=== PATIENT | female | born 1965 | race Caucasian/White ===

== ENCOUNTER → 2018-06-10 | Outpatient (CLI) | payer OTHER ==
[~2018-06-10] MED LIST: BUDESONIDE EC3 MG PO; Bactrim Ds Tab1 EACH PO; CALC.25 PO; CEPH500 PO; CHOL10002; Fludrocortison0.1 MG PO; HYDACE25S PR; IBUP400 PO; IBUP600 PO; LEVSOD50 PO; VICODIN 5-3001 EACH; VITAMIN D35000 UNIT PO; Vitamin A8000 UNIT PO; Vitamin D400 UNI1 PO; ZOLP5 PO
[2018-06-12 15:06] LABS: HPV 16 Negative (Negative); HPV 18 Negative (Negative); HPV OTHER HR TYPES Negative (Negative)
== END | disposition home or self-care (01) ==
LOC: LAB 15:53 → LAB SHORT 15:53
PROVIDERS: Obstetrics & Gynecology
DX: Z01.419 Encounter for gynecological examination (general) (routine) without abnormal findings (principal)
CPT/HCPCS: 87624; G0123

== ENCOUNTER → 2020-12-21 | Outpatient (CLI) | payer OTHER | LOC: LAB SHORT 17:27 → LAB EV 17:27 → LAB 17:27 | DX: N39.0 Urinary tract infection, site not specified (principal); Z88.0 Allergy status to penicillin; Z88.5 Allergy status to narcotic agent; Z91.018 Allergy to other foods | CPT/HCPCS: 87077; 87086; 87186 ==

== ENCOUNTER 2021-12-25 21:03 | Emergency (ER) | payer OTHER ==
[~2021-12-25] VITALS: Ht 165.1 cm; Wt 55.3 kg
[2021-12-25 21:37] LABS: BASOPHILS ABSOLUTE AUTO 0.05 K/mm3 (0.00-0.23); BASOPHILS PERCENT AUTO 1 % (0-2); EOSINOPHILS PERCENT AUTO 1 % (0-6); Hematocrit 40.8 % (33.0-51.0); Hemoglobin 13.8 g/dL (11.5-16.0); IMMATURE GRAN ABSOLUTE AUTO 0.03 K/mm3 (0.00-0.10); IMMATURE GRAN PERCENT AUTO 0 % (0-1); LYMPHOCYTES ABSOLUTE AUTO 2.54 K/mm3 (0.84-5.20); LYMPHOCYTES PERCENT AUTO 28 % (21-46); MONOCYTES ABSOLUTE AUTO 0.96 K/mm3 (0.16-1.47); MONOCYTES PERCENT AUTO 11 % (4-13); Mean Corpuscular HGB 30.4 pg (26.0-34.0); Mean Corpuscular HGB Conc 33.8 g/dL (31.5-36.5); Mean Corpuscular Volume 90 fL (80-100); NEUTROPHILS ABSOLUTE AUTO 5.38 K/mm3 (1.96-9.15); NEUTROPHILS PERCENT AUTO 59 % (41-73); Platelet Count 224 K/mm3 (150-400); RDW Coefficient Variation 13.1 % (11.7-14.2); RDW Standard Deviation 42.9 fL (35.1-46.3); Red Blood Cell Count 4.54 M/mm3 (3.80-5.20); White Blood Cell Count 9.06 K/mm3 (4.00-11.30)
[2021-12-25 21:54] LABS: Albumin, Blood 3.5 g/dL (3.4-5.0); Albumin/Globulin Ratio 0.8 (0.8-1.8); Bilirubin, Total 0.5 mg/dL (0.1-1.0); Bun/Creatinine Ratio 36.7 (12.0-20.0); Calcium, Blood 8.8 mg/dL (8.5-10.1); Creatinine, Blood 0.74 mg/dL (0.40-1.00); Globulin, Blood 4.2 g/dL (2.2-4.0); Potassium, Blood 3.8 mmol/L (3.5-5.5); Total Protein, Blood 7.7 g/dL (6.4-8.2)
[2021-12-25 22:37] LABS: Magnesium, Blood 1.7 mg/dL (1.6-2.4)
[2021-12-25 23:53] LABS: Influenza A, PCR NEGATIVE (NEGATIVE); Influenza B, PCR NEGATIVE (NEGATIVE); Resp Syncytial Virus, PCR NEGATIVE (NEGATIVE); SARS-Cov-2 (COVID-19) PCR, MMC NEGATIVE (NEGATIVE)
[2021-12-26 01:04] LABS: Source, Urine Clean Catch
[2021-12-26 01:07] LABS: Bilirubin, Urine Neg (Neg); Blood, Urine 1+ (Neg); Glucose Qualitative, Urine Neg (Neg); Ketones, Urine 3+ (Neg); Leukocyte Esterase, Urine Neg (Neg); Nitrite, Urine Neg (Neg); Protein, Urine 2+ (Neg); Specific Gravity, Urine 1.015 (1.003-1.022); Urobilinogen, Urine NORM (Normal)
[2021-12-26 01:20] LABS: Appearance, Urine Clear (Clear); Color, Urine Yellow (P-Yellow)
[2021-12-26 01:28] LABS: White Blood Cells, Urine 0-2 /hpf (0-5)
[2021-12-26 01:29] LABS: Bacteria Rare /hpf; Red Blood Cells, Urine 0-2 /hpf (0-2); Squamous Epithelial Cells Few /hpf (Few)
[2021-12-26] MEDS ORDERED: ONDA4ODT MM (01:37)
== END 2021-12-26 02:00 | disposition home or self-care (01) ==
LOC: ER 21:03
PROVIDERS: Emergency Medicine; Student in an Organized Health Care Education/Training Program
DX: K52.9 Noninfective gastroenteritis and colitis, unspecified (principal); E06.3 Autoimmune thyroiditis; Z20.822 Contact with and (suspected) exposure to COVID-19; Z79.899 Other long term (current) drug therapy; Z88.5 Allergy status to narcotic agent; Z88.0 Allergy status to penicillin; Z91.018 Allergy to other foods
CPT/HCPCS: 0241U; 36415; 74177; 80053; 81001; 83690; 83735; 85025; 96374; 96375; 99284-25; J1885; J2405; J7030; Q9967

== ENCOUNTER 2021-12-31 11:05 | Inpatient (IN) | payer OTHER ==
[~2021-12-31] VITALS: Ht 165.1 cm; Wt 67.5 kg
[2021-12-31 17:55] LABS: BASOPHILS ABSOLUTE AUTO 0.04 K/mm3 (0.00-0.23); BASOPHILS PERCENT AUTO 1 % (0-2); EOSINOPHILS ABSOLUTE AUTO 0.07 K/mm3 (0.00-0.68); EOSINOPHILS PERCENT AUTO 1 % (0-6); Hematocrit 28.9 % (33.0-51.0); Hemoglobin 9.8 g/dL (11.5-16.0); IMMATURE GRAN ABSOLUTE AUTO 0.29 K/mm3 (0.00-0.10); IMMATURE GRAN PERCENT AUTO 4 % (0-1); LYMPHOCYTES ABSOLUTE AUTO 1.88 K/mm3 (0.84-5.20); LYMPHOCYTES PERCENT AUTO 26 % (21-46); MONOCYTES ABSOLUTE AUTO 0.89 K/mm3 (0.16-1.47); MONOCYTES PERCENT AUTO 12 % (4-13); Mean Corpuscular HGB 30.2 pg (26.0-34.0); Mean Corpuscular HGB Conc 33.9 g/dL (31.5-36.5); Mean Corpuscular Volume 89 fL (80-100); NEUTROPHILS ABSOLUTE AUTO 4.19 K/mm3 (1.96-9.15); NEUTROPHILS PERCENT AUTO 57 % (41-73); NRBC ABSOLUTE 0.05 K/mm3 (0.00-0.02); NRBC Auto 0.7 /100 WBC (0.0-0.2); RDW Coefficient Variation 14.5 % (11.7-14.2); RDW Standard Deviation 46.7 fL (35.1-46.3); Red Blood Cell Count 3.25 M/mm3 (3.80-5.20); White Blood Cell Count 7.36 K/mm3 (4.00-11.30)
[2021-12-31 18:02] LABS: Base Excess Venous -12.8 mmol/L; Bicarbonate Venous 15.2 mmol/L (24.0-30.0); PCO2 Venous 32.9 mmHg (38-42); pH Blood Venous 7.25 (7.34-7.37)
[2021-12-31 18:08] LABS: Platelet Count 44 K/mm3 (150-400)
[2021-12-31 18:21] LABS: Magnesium, Blood 2.2 mg/dL (1.6-2.4); Percent Saturation 86.1 % (15.0-50.0)
[2021-12-31 18:28] LABS: Influenza A, PCR NEGATIVE (NEGATIVE); Influenza B, PCR NEGATIVE (NEGATIVE); Resp Syncytial Virus, PCR NEGATIVE (NEGATIVE); SARS-Cov-2 (COVID-19) PCR, MMC NEGATIVE (NEGATIVE)
[2021-12-31 18:55] LABS: Albumin, Blood 2.9 g/dL (3.4-5.0); Albumin/Globulin Ratio 0.8 (0.8-1.8); Beta-hydroxybutyrate 54.1 mg/dL (0.2-2.8); Bilirubin, Direct 0.3 mg/dL (0.0-0.3); Bilirubin, Indirect 0.8 mg/dL (0.1-0.7); Bilirubin, Total 1.1 mg/dL (0.1-1.0); Bun/Creatinine Ratio 19.5 (12.0-20.0); Calcium, Blood 8.5 mg/dL (8.5-10.1); Creatinine, Blood 4.81 mg/dL (0.40-1.00); Globulin, Blood 3.5 g/dL (2.2-4.0); Potassium, Blood 4.9 mmol/L (3.5-5.5); Total Protein, Blood 6.4 g/dL (6.4-8.2)
[2021-12-31 22:35] LABS: Bun/Creatinine Ratio 18.5 (12.0-20.0); Creatinine, Blood 4.64 mg/dL (0.40-1.00); Potassium, Blood 4.7 mmol/L (3.5-5.5)
[2021-12-31 22:59] LABS: Thyroid Stimulating Hormone 1.44 uIU/mL (0.360-4.800)
[2022-01-01 04:15] LABS: BASOPHILS ABSOLUTE AUTO 0.04 K/mm3 (0.00-0.23); BASOPHILS PERCENT AUTO 1 % (0-2); EOSINOPHILS PERCENT AUTO 1 % (0-6); Hemoglobin 8.4 g/dL (11.5-16.0); IMMATURE GRAN ABSOLUTE AUTO 0.29 K/mm3 (0.00-0.10); IMMATURE GRAN PERCENT AUTO 4 % (0-1); LYMPHOCYTES ABSOLUTE AUTO 2.03 K/mm3 (0.84-5.20); LYMPHOCYTES PERCENT AUTO 27 % (21-46); MONOCYTES ABSOLUTE AUTO 1.12 K/mm3 (0.16-1.47); MONOCYTES PERCENT AUTO 15 % (4-13); Mean Corpuscular HGB 29.9 pg (26.0-34.0); Mean Corpuscular HGB Conc 33.6 g/dL (31.5-36.5); Mean Corpuscular Volume 89 fL (80-100); NEUTROPHILS ABSOLUTE AUTO 3.91 K/mm3 (1.96-9.15); NEUTROPHILS PERCENT AUTO 52 % (41-73); NRBC ABSOLUTE 0.05 K/mm3 (0.00-0.02); NRBC Auto 0.7 /100 WBC (0.0-0.2); RDW Coefficient Variation 14.9 % (11.7-14.2); RDW Standard Deviation 48.3 fL (35.1-46.3); Red Blood Cell Count 2.81 M/mm3 (3.80-5.20); White Blood Cell Count 7.49 K/mm3 (4.00-11.30)
[2022-01-01 04:28] LABS: Platelet Count 44 K/mm3 (150-400)
[2022-01-01 04:38] LABS: Bun/Creatinine Ratio 19.4 (12.0-20.0); Calcium, Blood 7.1 mg/dL (8.5-10.1); Creatinine, Blood 4.65 mg/dL (0.40-1.00); Potassium, Blood 4.7 mmol/L (3.5-5.5)
--- NOTE | 2022-01-01 06:11 | NUR ---
IRONWORKER HELPER SHOP SUMMARY PT ARRIVED TO THE UNIT REPORTING SEVERE FLANK PAIN AND NAUSEA. PT WAS GIVEN IV PHENERGAN AND PAIN MEDICATION WHICH SEEMED TO RELIEVE HER SYMPTOMS ENOUGH TO SLEEP FOR A FEW HOURS. THE PT REPORTED FLANK PAIN THROUGH OUT THE SHIFT W MINIMAL RELIEF WHEN MEDICATED PER EMAR. NO EMESIS OR BM THIS SHIFT. PT HAS HAD NO URINE OUTPUT THIS SHIFT AND BLADDER SCAN THIS AM SHOWED <200ML IN HER BLADDER. BP WNL AND STABLE. TELE SHOWING SR IN THE 60'S. PT AFEBRILE. O2 SATS >92% ON RM AIR. CBG'S DROPPING UNTIL 0200 WHERE THEY HAVE REMAINED AT 70 ALL MORNING. HEMATOLOGY AND NEPHROLOGY CONSULTS BOTH CALLED IN. DR. FENG SWITCHING FLUIDS TO NA BICARB IN 0.25NS. WILL REPORT TO ONCOMING RN.
[2022-01-01 10:12] LABS: Bilirubin, Direct 0.2 mg/dL (0.0-0.3); Creatine Kinase MB 1.9 ng/mL (0.0-3.6); Creatine Kinase MB Index 1.2 (0.0-4.0)
--- NOTE | 2022-01-01 13:06 | NUR ---
Patient is lying in bed and moaning. Pt's spouse, Edwar is bedside. Pt's RN Gerald is working diligently to manage pt's pain level and nausea. Edwar talks about the events that led to her hospitalization, the family (one son Ej and one dtr Flor). Pt continues to struggle and is in too much pain to engage in the conversation. I provide a calming presence, therapeutic listening (for Edwar) and prayer. Pt and Edwar voice their appreciation for the visit.
[2022-01-01 13:41] LABS: IMMATURE RETIC FRACTION 32.9 % (2.3-16.0); RETIC HGB EQUIVALENT 34.9 pg (28.20-36.60); RETICULOCYTE COUNT PERCENT 2.49 % (0.50-2.50)
[2022-01-01 14:59] LABS: Albumin, Blood 2.4 g/dL (3.4-5.0); Anion Gap 11 mmol/L (6-16); Blood Urea Nitrogen 85 mg/dL (8-24); Bun/Creatinine Ratio 18.7 (12.0-20.0); CO2, Blood 17 mmol/L (21-32); Calcium, Blood 7.5 mg/dL (8.5-10.1); Chloride, Blood 111 mmol/L (98-108); Creatinine, Blood 4.55 mg/dL (0.40-1.00); Glomerular Filtration Rate 11 (60-); Glucose, Blood 70 mg/dL (70-99); Phosphorus, Blood 4.5 mg/dL (2.5-4.9); Potassium, Blood 4.5 mmol/L (3.5-5.5); Sodium, Blood 139 mmol/L (136-145)
[2022-01-01 15:00] LABS: International Normalized Ratio 1.1; Prothrombin Time Results 11.5 Sec (9.7-11.5)
--- NOTE | 2022-01-01 17:04 | NUR ---
SHIFT SUMMARY PT HAS BEEN SLEEPING OFF AND ON THROUGHOUT THE DAY. WHILE AWAKE, PT STATES 9/10 PAIN TO BILATERAL FLANKS THAT. PAIN MANAGEMENT MEDICATION WILL REDUCE PAIN TO 5-6/10 AND MAKES THE PT DROWSY. PT HAS CONTINUED TO EXPERIENCE NAUSEA, BUT NO EMESIS OR BOWEL MOVEMENT HAS OCCURRED. MILD SWELLING OF THE DIGITS WAS NOTED THIS AFTERNOON, PT IS UNABLE TO REMOVE RINGS. PT STATES THAT SWELLING IS CAUSING MILD DISCOMFORT IN FINGERS THAT RINGS ARE PLACED ON. PERIPHERAL BLOOD FLOW REMAINS INTACT AND THERE IS CAPILLARY REFILL OF <3 SECONDS.
--- NOTE | 2022-01-01 20:18 | NUR ---
CARE ASSUMPTION THIS RN ENTERED THE PT'S ROOM W PT VISUALLY IN DISTRESS. THE PT REPORTED "CRUSHINGH CHEST PAIN", THAT FELT LIKE "SOMEONE IS SITTING ON MY CHEST". EKG DONE SHOWING NSR IN THE 60'S. BP WNL. PROVIDER CONTACTED AND NEW ORDERS FOR TROPONINS, CHEST XRAY, AND NITRO WERE GIVEN.
[2022-01-02 04:21] LABS: BASOPHILS ABSOLUTE AUTO 0.03 K/mm3 (0.00-0.23); BASOPHILS PERCENT AUTO 1 % (0-2); EOSINOPHILS PERCENT AUTO 2 % (0-6); Hemoglobin 7.3 g/dL (11.5-16.0); IMMATURE GRAN ABSOLUTE AUTO 0.17 K/mm3 (0.00-0.10); IMMATURE GRAN PERCENT AUTO 3 % (0-1); LYMPHOCYTES ABSOLUTE AUTO 1.98 K/mm3 (0.84-5.20); LYMPHOCYTES PERCENT AUTO 31 % (21-46); MONOCYTES ABSOLUTE AUTO 0.79 K/mm3 (0.16-1.47); MONOCYTES PERCENT AUTO 12 % (4-13); Mean Corpuscular HGB 29.9 pg (26.0-34.0); Mean Corpuscular HGB Conc 34.8 g/dL (31.5-36.5); Mean Corpuscular Volume 86 fL (80-100); NEUTROPHILS ABSOLUTE AUTO 3.32 K/mm3 (1.96-9.15); NEUTROPHILS PERCENT AUTO 52 % (41-73); NRBC ABSOLUTE 0.07 K/mm3 (0.00-0.02); NRBC Auto 1.1 /100 WBC (0.0-0.2); RDW Standard Deviation 46.5 fL (35.1-46.3); Red Blood Cell Count 2.44 M/mm3 (3.80-5.20); White Blood Cell Count 6.39 K/mm3 (4.00-11.30)
[2022-01-02 04:34] LABS: Platelet Count 46 K/mm3 (150-400)
[2022-01-02 04:43] LABS: Albumin, Blood 2.2 g/dL (3.4-5.0); Albumin/Globulin Ratio 0.8 (0.8-1.8); Bilirubin, Total 1.1 mg/dL (0.1-1.0); C-REACTIVE PROTEIN, EXT RANGE 2.11 mg/dL (0.000-0.300); Calcium, Blood 7.5 mg/dL (8.5-10.1); Creatinine, Blood 4.22 mg/dL (0.40-1.00); Globulin, Blood 2.8 g/dL (2.2-4.0); Magnesium, Blood 1.9 mg/dL (1.6-2.4); Phosphorus, Blood 4.2 mg/dL (2.5-4.9); Potassium, Blood 3.8 mmol/L (3.5-5.5)
--- NOTE | 2022-01-02 05:21 | NUR ---
FOOT DRILL OPERATOR SUMMARY PT IS ALERT AND ORIENTED THIS SHIFT COMMUNICATING APPROPRIATELY W STAFF DESPITE BEING LIMITED DUE TO NAUSEA AND PAIN. PT BEGAN SHIFT REPORTING "CRUSHING CHEST PAIN", (SEE PREVIOUS NOTE). PROVIDER CONTACTED AND ORDERS GIVEN. TROPONIN WAS NEGATIVE, EKG SHOWED NO ABNORMALITIES, AND PT DID NOT RESPOND TO NITRO. THE PT WAS GIVEN PHENERGAN WHICH SEEMED TO EASE HER SYMPTOMS AND SHE WAS ABLE TO SLEEP. NO BOWEL MOVEMENT THIS SHIFT. PT VOIDED ONCE THIS SHIFT PRODUCING 400ML OF DARK ELISA URINE. BP WNL AND STABLE. TELE SHOWING SR IN THE 60'S. PT HAD CHEST XRAY THIS SHIFT DUE TO CHEST PAIN. PT HAD NAUSEA THIS SHIFT W ATTEMPTS TO VOMIT BUT WAS UNABLE TO PRODUCE ANY EMESIS. BLOOD GLUCOSE STABLE >100 THIS SHIFT. D5W W BICARB RUNNING AT 100ML/HR. WILL REPORT TO ONCOMING RN.
[2022-01-02 08:11] LABS: COMPLEMENT C3, SERUM 109 mg/dL (82-167); IMMUNOGLOBULIN A, QN, SERUM <5 mg/dL (87-352); IMMUNOGLOBULIN G, QN, SERUM 1314 mg/dL (586-1602); IMMUNOGLOBULIN M, QN, SERUM 76 mg/dL (26-217)
[2022-01-02 09:11] LABS: COMPLEMENT C3, SERUM 109 mg/dL (82-167); COMPLEMENT C4, SERUM 15 mg/dL (12-38)
--- NOTE | 2022-01-02 14:01 | NUR ---
Patient continues to struggle with the nausea, pain and exhaustion even as the medical team work tirelessly to manage her symptoms. I talk predominantly with pt's spouse, Ridge. He tells me about the fears and concerns and about their emotional status as the challenges remain in front of them. Pt and ridge are staying grateful and are encouraged by every little step forward. I provide therapeutic listening and prayer. They respond well and show signs of increased hope.
[2022-01-02 17:08] LABS: ANTI-DSDNA ANTIBODIES 2 IU/mL (0-9); RNP ANTIBODIES 0.2 AI (0.0-0.9); SJOGREN'S ANTI-SS-A 0.2 AI (0.0-0.9); SJOGREN'S ANTI-SS-B <0.2 AI (0.0-0.9); SMITH ANTIBODIES <0.2 AI (0.0-0.9)
--- NOTE | 2022-01-02 18:11 | NUR ---
SHIFT SUMMARY PT HAS BEEN RESTING IN BED, SLEEPING OFF AND ON, THROUGHOUT THE DAY. PT CONTINUES TO HAVE 9/10 PAIN TO THE BILATERAL FLANK THAT IS RELIEVED TO 6/10 WITH MEDICATION. PT IS UNABLE TO FIND A COMFORTABLE POSITION EITHER ASSISTED OR UNASSISTED. PT WAS NOT WILLING TO ATTEMPT TO INGEST ANYTHING OTHER THAN WATER DESPITE BEING ENCOURAGED AND EDUCATED. PT WAS ABLE TO TRANSFER TO BEDSIDE COMMODE WITH MINIMAL ASSISTANCE. PT WAS MORE VERBAL COMPARED WITH YESTERDAY AND WOULD ANSWER QUESTIONS AND OFFER INPUT TO THIS RN DURING CONVERSATIONS. PT'S HAS CONTINUED TO BE AT THE BEDSIDE AND HAS ASSISTED WITH CARE. VITAL SIGNS REMAIN STABLE.
[2022-01-02 18:13] LABS: Source, Urine Clean Catch
[2022-01-02 18:18] LABS: Appearance, Urine Hazy (Clear); Bilirubin, Urine Neg (Neg); Blood, Urine 5+ (Neg); Color, Urine Yellow (P-Yellow); Glucose Qualitative, Urine Neg (Neg); Ketones, Urine Neg (Neg); Leukocyte Esterase, Urine 2+ (Neg); Nitrite, Urine Neg (Neg); Protein, Urine 4+ (Neg); Urobilinogen, Urine NORM (Normal)
[2022-01-02 19:00] LABS: Hyaline Casts 0-2 /lpf (0-2); White Blood Cells, Urine 25-50 /hpf (0-5)
[2022-01-02 19:01] LABS: Bacteria Many /hpf; Squamous Epithelial Cells Many /hpf (Few); Transitional Epithelial Cells Few /hpf (0-Rare)
[2022-01-03 04:01] LABS: IMMATURE RETIC FRACTION 31.8 % (2.3-16.0); RETIC HGB EQUIVALENT 34.9 pg (28.20-36.60); RETICULOCYTE ABSOLUTE 0.0624 M/mm3 (0.0200-0.1100); RETICULOCYTE COUNT PERCENT 2.61 % (0.50-2.50)
--- NOTE | 2022-01-03 05:40 | NUR ---
BALLASTER SUMMARY THE PT IS ALERT AND ORIENTED COMMUNICATING APPROPRIATELY W STAFF. THE PT APPEARS TO BE DOING MUCH BETTER THEN SHE HAS BEEN THE PREVIOUS NIGHT. THE PT HAS DENIED ANY NAUSEA THIS SHIFT BUT STILL REPORTS SEVERE ABDOMINAL PAIN REQUIRING IV PAIN MEDICATION THROUGH OUT THE SHIFT.
[2022-01-03 06:23] LABS: BASOPHILS ABSOLUTE AUTO 0.01 K/mm3 (0.00-0.23); BASOPHILS PERCENT AUTO 0 % (0-2); EOSINOPHILS ABSOLUTE AUTO 0.09 K/mm3 (0.00-0.68); EOSINOPHILS PERCENT AUTO 1 % (0-6); Hematocrit 21.4 % (33.0-51.0); Hemoglobin 7.4 g/dL (11.5-16.0); IMMATURE GRAN ABSOLUTE AUTO 0.15 K/mm3 (0.00-0.10); IMMATURE GRAN PERCENT AUTO 2 % (0-1); LYMPHOCYTES ABSOLUTE AUTO 1.64 K/mm3 (0.84-5.20); LYMPHOCYTES PERCENT AUTO 25 % (21-46); MONOCYTES ABSOLUTE AUTO 0.76 K/mm3 (0.16-1.47); MONOCYTES PERCENT AUTO 12 % (4-13); Mean Corpuscular HGB 30.2 pg (26.0-34.0); Mean Corpuscular HGB Conc 34.6 g/dL (31.5-36.5); Mean Corpuscular Volume 87 fL (80-100); NEUTROPHILS ABSOLUTE AUTO 3.83 K/mm3 (1.96-9.15); NEUTROPHILS PERCENT AUTO 59 % (41-73); NRBC ABSOLUTE 0.09 K/mm3 (0.00-0.02); NRBC Auto 1.4 /100 WBC (0.0-0.2); RDW Coefficient Variation 15.4 % (11.7-14.2); RDW Standard Deviation 47.6 fL (35.1-46.3); Red Blood Cell Count 2.45 M/mm3 (3.80-5.20); White Blood Cell Count 6.48 K/mm3 (4.00-11.30)
[2022-01-03 06:32] LABS: Platelet Count 41 K/mm3 (150-400)
[2022-01-03 06:36] LABS: Albumin, Blood 2.2 g/dL (3.4-5.0); Albumin/Globulin Ratio 0.7 (0.8-1.8); Bilirubin, Total 1.2 mg/dL (0.1-1.0); Bun/Creatinine Ratio 23.3 (12.0-20.0); Calcium, Blood 7.7 mg/dL (8.5-10.1); Creatinine, Blood 3.65 mg/dL (0.40-1.00); Magnesium, Blood 1.8 mg/dL (1.6-2.4); Phosphorus, Blood 3.9 mg/dL (2.5-4.9); Potassium, Blood 3.7 mmol/L (3.5-5.5); Total Protein, Blood 5.2 g/dL (6.4-8.2)
[2022-01-03 13:10] LABS: A/G RATIO 1.2 (0.7-1.7); ALBUMIN 2.9 g/dL (2.9-4.4); ALPHA-1-GLOBULIN 0.2 g/dL (0.0-0.4); ALPHA-2-GLOBULIN 0.4 g/dL (0.4-1.0); BETA GLOBULIN 0.6 g/dL (0.7-1.3); GAMMA GLOBULIN 1.2 g/dL (0.4-1.8); GLOBULIN, TOTAL 2.4 g/dL (2.2-3.9); M-SPIKE Not Observed g/dL (Not Observed); PROTEIN, TOTAL, SERUM 5.3 g/dL (6.0-8.5)
--- NOTE | 2022-01-03 13:11 | NUR ---
Patietn is more verbal today and shows signs of less discomfort and pain. Pt's spouse Edwar and daughter Flor are bedside and offering support and care. They explain about the events that have happened over the last 24 hrs and the plans moving forward. I listen empathically and provide prayer. Pt is engaged in the prayer and voices appreciation for the the prayer and time. I will continue to remain available to pt and family.
[2022-01-03 14:42] LABS: Mean Corpuscular HGB 30.4 pg (26.0-34.0); Mean Corpuscular Volume 87 fL (80-100); NRBC ABSOLUTE 0.09 K/mm3 (0.00-0.02); NRBC Auto 1.6 /100 WBC (0.0-0.2); RDW Coefficient Variation 15.6 % (11.7-14.2); White Blood Cell Count 5.74 K/mm3 (4.00-11.30)
[2022-01-03 14:58] LABS: Platelet Count 44 K/mm3 (150-400)
--- NOTE | 2022-01-03 17:53 | NUR ---
SHIFT SUMMARY PT HAS BEEN RESTING IN BED THROUGHOUT THE DAY. PT HAS CONTINUED TO HAVE 8/10 BILATERAL FLANK PAIN THAT HAS BEEN MANAGED DOWN TO 5/10 WITH MEDICATION AND REPOSITIONING. PT HAS BEEN UP TO BEDSIDE COMMODE BY A ONE-PERSON ASSIST TO VOID. ABDOMINAL DISTENTION HAS INCREASED MILDLY FROM INITIAL ASSESSMENT, IT IS FIRM AND TENDER TO PALPATION. REPOSITIONING HAS OCCURRED SPONTANEOUSLY AND UNASSISTED. THIS RN HAS ENCOURAGED PO INTAKE BUT THEY HAVE REFUSED ALL OFFERS OTHER THAN WATER AND REQUESTED PEPPERMINT TEA ONCE. TIME BETWEEN REQUESTS FOR PAIN MANAGEMENT HAVE LENGTHENED THROUGHOUT THE DAY. ALL VITAL SIGNS STABLE.
[2022-01-03 18:38] LABS: International Normalized Ratio 1.15
[2022-01-04 03:49] LABS: BASOPHILS ABSOLUTE AUTO 0.01 K/mm3 (0.00-0.23); BASOPHILS PERCENT AUTO 0 % (0-2); EOSINOPHILS PERCENT AUTO 0 % (0-6); Hematocrit 21.1 % (33.0-51.0); Hemoglobin 7.5 g/dL (11.5-16.0); IMMATURE GRAN ABSOLUTE AUTO 0.09 K/mm3 (0.00-0.10); IMMATURE GRAN PERCENT AUTO 2 % (0-1); LYMPHOCYTES ABSOLUTE AUTO 0.67 K/mm3 (0.84-5.20); LYMPHOCYTES PERCENT AUTO 14 % (21-46); MONOCYTES ABSOLUTE AUTO 0.09 K/mm3 (0.16-1.47); MONOCYTES PERCENT AUTO 2 % (4-13); Mean Corpuscular HGB 31.1 pg (26.0-34.0); Mean Corpuscular HGB Conc 35.5 g/dL (31.5-36.5); Mean Corpuscular Volume 88 fL (80-100); NEUTROPHILS ABSOLUTE AUTO 3.83 K/mm3 (1.96-9.15); NEUTROPHILS PERCENT AUTO 82 % (41-73); NRBC ABSOLUTE 0.07 K/mm3 (0.00-0.02); NRBC Auto 1.5 /100 WBC (0.0-0.2); RDW Coefficient Variation 15.3 % (11.7-14.2); RDW Standard Deviation 47.1 fL (35.1-46.3); Red Blood Cell Count 2.41 M/mm3 (3.80-5.20); White Blood Cell Count 4.69 K/mm3 (4.00-11.30)
[2022-01-04 04:15] LABS: Platelet Count 49 K/mm3 (150-400)
[2022-01-04 04:19] LABS: Alanine Aminotransfer (ALT/SGP 19 U/L (12-78); Albumin, Blood 2.3 g/dL (3.4-5.0); Albumin/Globulin Ratio 0.7 (0.8-1.8); Alk Phos 79 U/L (50-136); Anion Gap 7 mmol/L (6-16); Aspartate Aminotrans (AST/SGOT 45 U/L (12-37); Blood Urea Nitrogen 99 mg/dL (8-24); Bun/Creatinine Ratio 28.9 (12.0-20.0); CO2, Blood 27 mmol/L (21-32); Calcium, Blood 8.1 mg/dL (8.5-10.1); Chloride, Blood 102 mmol/L (98-108); Creatinine, Blood 3.43 mg/dL (0.40-1.00); Globulin, Blood 3.2 g/dL (2.2-4.0); Glomerular Filtration Rate 15 (60-); Glucose, Blood 233 mg/dL (70-99); Lactate Dehydrogenase (Ld),Bld 980 U/L (100-240); Potassium, Blood 4.6 mmol/L (3.5-5.5); Sodium, Blood 136 mmol/L (136-145); Total Protein, Blood 5.5 g/dL (6.4-8.2); Triglycerides 129 mg/dL (30-160)
--- NOTE | 2022-01-04 06:22 | NUR ---
PATIENT REPORTS FEELING BETTER THIS MORNING THAN SHE HAS IN DAYS. SHE WAS ABLE TO SLEEP THROUGH MOST OF THE NIGHT, WAKING ONLY WHEN STAFF ENTERED HER ROOM FOR VITAL SIGNS AND OTHER CARE. SHE REPORTED SOME NAUSEA AT THE BEGINNING OF THE SHIFT LAST NIGHT AND WAS GIVEN PHENERGAN PRESCRIBED. SHE REPORTED MINOR PAIN TO ABDOMEN (EPIGASTRIC AND LEFT LOWER QUADRANT) AND BILATERAL FLANKS. GIVEN HER DROWSINESS FOLLOWING THE ADMINISTRATION OF THE PHENERGAN. I HELD OFF ON ADMINISTERING THE PAIN MEDICATION AND PATIENT LATER DENIED NEEDING ANYTHING FOR PAIN INTERVENTION. VITAL SIGNS STABLE, PO INPUT MINIMAL, PPN INFUSING ORDERED.
[2022-01-04 11:14] LABS: Phosphorus, Blood 5.5 mg/dL (2.5-4.9)
[2022-01-04 15:11] LABS: ANTISCLERODERMA-70 ANTIBODIES <0.2 AI (0.0-0.9); SJOGREN'S ANTI-SS-A 0.2 AI (0.0-0.9); SJOGREN'S ANTI-SS-B <0.2 AI (0.0-0.9)
--- NOTE | 2022-01-04 17:06 | NUR ---
SHIFT SUMMARY PT HAD DR. MARTINEZ AND DR. MERCEDES COME IN AND DX THE PT W/ HUS. PT STARTED ON STERIODS ON 01/04 EVENING FOR TREATMENT. PT WOKE UP FEELING BETTER THEN SHE HAS SINCE COMING TO THE HOSPITAL. SHE WAS C/O SOME UPPER ABDOMINAL PAIN 12/19 AND WAS GIVEN DILAUDID WHICH LOWERED THE PAIN. SHE WAS GIVEN A BEDBATH AND SAT UP IN THE CHAIR. THE PT BECAME VERY DROWSY FROM MEDICATION AND WHEN SHE WAS SLEEPING HER SP02 WAS 88-90% SUSTAINING. SHE WAS PLACED ON 1-3 L NC TO KEEP SPO2 >93%. PT STATES THAT SHE HAS SOME SHORTNESS OF BREATH, BUT IT IS NOT NEW. SHE WAS SWITCHED FROM TPN TO CPN AFTER A PICC LINE WAS PLACE IN THE DUSTIN. DURING THE PICC LINE PROCEDURE THE PT WAS BLEEDING AT THE SITE AND COBAN W/ GAUZE WAS PLACED OVER THE TEGADERM CHG. ICU NURSE ASKED US TO REASSESS THE SITE AFTER 2 HOURS AND BLEEDING HAS NOT CONTINUED. THE ICU NURSE STATED THAT THE DRESSING WILL NEED TO BE CHANGE TOMORROW. PT'S HAS BEEN AT BEDSIDE ALL DAY, AND UPDATING HIS FAMILY. WILL CONTINUE TO MONITOR
--- NOTE | 2022-01-05 06:00 | NUR ---
NO ACUTE EVENTS OVERNIGHT LAST NIGHT. BLOOD SUGARS CHANGED FROM AC/HS TO Q6 HOURS DUE TO PATIENT NOT TOLERATING PO AND RECEIVING PPN. EDUCAITON PROVIDED TO PATIENT REGARDING REASON FOR ELEVATED BLOOD SUGARS, NAMELY HIGH DOSE OF STEROIDS. PT REPORTS THAT HER PAIN IS CONSIDERABLY LESS THAN WHEN SHE WAS FIRST ADMITTED. SHE STATED THAT SHE WAS ABLE TO GET SOME REST LAST NIGHT AND THAT THE PHENERGAN HELPED TO QUELL HER NAUSEA.
[2022-01-05 06:03] LABS: Magnesium, Blood 2.4 mg/dL (1.6-2.4); Phosphorus, Blood 3.9 mg/dL (2.5-4.9)
[2022-01-05 09:01] LABS: BASOPHILS ABSOLUTE AUTO 0.01 K/mm3 (0.00-0.23); BASOPHILS PERCENT AUTO 0 % (0-2); EOSINOPHILS PERCENT AUTO 0 % (0-6); Hematocrit 20.8 % (33.0-51.0); Hemoglobin 7.1 g/dL (11.5-16.0); IMMATURE GRAN ABSOLUTE AUTO 0.08 K/mm3 (0.00-0.10); IMMATURE GRAN PERCENT AUTO 1 % (0-1); LYMPHOCYTES ABSOLUTE AUTO 0.82 K/mm3 (0.84-5.20); LYMPHOCYTES PERCENT AUTO 7 % (21-46); MONOCYTES ABSOLUTE AUTO 0.57 K/mm3 (0.16-1.47); MONOCYTES PERCENT AUTO 5 % (4-13); Mean Corpuscular HGB 30.7 pg (26.0-34.0); Mean Corpuscular HGB Conc 34.1 g/dL (31.5-36.5); Mean Corpuscular Volume 90 fL (80-100); NEUTROPHILS ABSOLUTE AUTO 10.28 K/mm3 (1.96-9.15); NEUTROPHILS PERCENT AUTO 87 % (41-73); NRBC ABSOLUTE 0.06 K/mm3 (0.00-0.02); NRBC Auto 0.5 /100 WBC (0.0-0.2); Platelet Count 88 K/mm3 (150-400); RDW Coefficient Variation 16.7 % (11.7-14.2); RDW Standard Deviation 47.5 fL (35.1-46.3); Red Blood Cell Count 2.31 M/mm3 (3.80-5.20); White Blood Cell Count 11.76 K/mm3 (4.00-11.30)
[2022-01-05 09:31] LABS: Albumin, Blood 2.3 g/dL (3.4-5.0); Albumin/Globulin Ratio 0.8 (0.8-1.8); Bilirubin, Total 0.4 mg/dL (0.1-1.0); Bun/Creatinine Ratio 34.7 (12.0-20.0); Calcium, Blood 7.9 mg/dL (8.5-10.1); Creatinine, Blood 3.2 mg/dL (0.40-1.00); Phosphorus, Blood 3.4 mg/dL (2.5-4.9); Potassium, Blood 4.5 mmol/L (3.5-5.5); Total Protein, Blood 5.3 g/dL (6.4-8.2)
--- NOTE | 2022-01-05 17:47 | NUR ---
SHIFT SUMMARY PT WOKE UP THIS MORNING AND GOALS SET OF A BEDBATH, GETTING UP IN THE CHAIR, DOING SOME ARM AND LEG ROM, AND TRYING TO KEEP DOWN SOME INTAKE. ALL GOALS WERE MET THROUGHOUT THE SHIFT, AND THE PT EVEN PASSED SOME GAS FOR THE FIRST TIME IN DAY. PT WAS ABLE TO TOLERATE SWALLOWING OXYCODONE SINCE IT WAS SMALL BUT BEGAN TO GET SICK WHEN TAKING TYLONAL. PT HAS BEEN SIPPING ON FLUIDS IN SCANT AMOUNT THROUGHOUT THE SHIFT. PAIN, NAUSEA, AND SLEEPING MEDICATIONS CHANGED TO BETTER SUIT THE PT. THE DUILADID IS TO STRONG. PT WAS ON 3L NC WHEN ENTERING THE SHIFT AND IS BACK ON ROOM AIR (BASELINE) SINCE THIS AM. EDEMA HAS LESSENED SINCE 60MG LASIX WAS GIVEN. THE PT HAD HER PICC LINE DRESSING CHANGED AT 1700, AND A NEW BAG OF CPN WAS STARTED. VS HAVE REMINED STABLE THROUGHT THE SHIFT, AND THE ONLY COMPLAINT AT THIS TIME IS SOME BACK/ABDOMINAL PAIN WHICH MEDICATIONS AND HEAT THERAPY HAVE HELPED WITH. WILL CONTINUE TO MONITOR.
[2022-01-06 04:58] LABS: BASOPHILS ABSOLUTE AUTO 0.01 K/mm3 (0.00-0.23); BASOPHILS PERCENT AUTO 0 % (0-2); EOSINOPHILS PERCENT AUTO 0 % (0-6); Hematocrit 19.3 % (33.0-51.0); Hemoglobin 6.6 g/dL (11.5-16.0); IMMATURE GRAN ABSOLUTE AUTO 0.16 K/mm3 (0.00-0.10); IMMATURE GRAN PERCENT AUTO 1 % (0-1); LYMPHOCYTES ABSOLUTE AUTO 0.78 K/mm3 (0.84-5.20); LYMPHOCYTES PERCENT AUTO 6 % (21-46); MONOCYTES ABSOLUTE AUTO 0.54 K/mm3 (0.16-1.47); MONOCYTES PERCENT AUTO 5 % (4-13); Mean Corpuscular HGB 31.4 pg (26.0-34.0); Mean Corpuscular HGB Conc 34.2 g/dL (31.5-36.5); Mean Corpuscular Volume 92 fL (80-100); NEUTROPHILS ABSOLUTE AUTO 10.61 K/mm3 (1.96-9.15); NEUTROPHILS PERCENT AUTO 88 % (41-73); NRBC ABSOLUTE 0.06 K/mm3 (0.00-0.02); NRBC Auto 0.5 /100 WBC (0.0-0.2); Platelet Count 106 K/mm3 (150-400); RDW Coefficient Variation 17.8 % (11.7-14.2); RDW Standard Deviation 47.9 fL (35.1-46.3)
[2022-01-06 05:14] LABS: Magnesium, Blood 2.5 mg/dL (1.6-2.4); Phosphorus, Blood 3.1 mg/dL (2.5-4.9); Triglycerides 277 mg/dL (30-160)
[2022-01-06 06:52] LABS: Albumin, Blood 2.5 g/dL (3.4-5.0); Albumin/Globulin Ratio 0.9 (0.8-1.8); Bilirubin, Total 0.5 mg/dL (0.1-1.0); Bun/Creatinine Ratio 42.8 (12.0-20.0); Calcium, Blood 7.7 mg/dL (8.5-10.1); Creatinine, Blood 2.69 mg/dL (0.40-1.00); Globulin, Blood 2.7 g/dL (2.2-4.0); Potassium, Blood 4.6 mmol/L (3.5-5.5); Total Protein, Blood 5.2 g/dL (6.4-8.2)
--- NOTE | 2022-01-06 07:10 | NUR ---
NO ACUTE EVENTS OVERNIGHT LAST NIGHT WITH THE EXCEPTION OF ABNORMAL VALUES WITH MORNING LABS, AMONG THOSE BEING A HEMOGLOBIN OF 6.6. HOSPITALIST Roly SANTANA ADVISED OF LABS AND ORDER RECEIVED TO TRANSFUSE ONE UNIT OF PACKED RED BLOOD CELLS. TYPE AND SCREEN NEEDED. MRS. COLUNGA DID REQUIRE 2 LPM SUPPLEMENTAL OXYGEN VIA NASAL CANNULA OVERNIGHT. PAIN WAS WELL CONTROLLED WITHOUT SCHEDULED TYLENOL, WHICH PATIENT REFUSED DUE TO EPISODE OF VOMITING FOLLOWING ATTEMPT TO TAKE TYLENOL YESTERDAY AFTERNOON. PATIENT REFUSED THE MELATONIN FOR THE SAME REASON, CONCERN FOR VOMITING WITH PILLS.
--- NOTE | 2022-01-06 13:17 | NUR ---
SHIFT SUMMARY PT. WAS ON 3L NC WHEN COMING ON THE SHIFT DUE TO DESATURATING TO 88% IN THE NIGHT, DURING MY MORNING ASSESSMENT I TURNED THE 02 DOWN TO 1LPM AND HER SP02 >90%. AFTER TWO HOURS HER OXYGEN WAS TURNED OFF AND IS SUSTAING ABOUT 95% SP02. HE HAS NOT HAD ANY SOB OR ANGINA TODAY. PT STARTED TO FEEL A LITTLE NAUSEATED AFTER CHEWING GUM FOR A LITTLE AND AFTER TRYING JELO WITH BREAKFAST. SHE WAS ABLE TO TO SIP ON BROTH AND WATER IN SCANT AMOUNTS THROUGHOUT THE DAY. THE PT GOT UP TO THE BSC MULTIPLE TIMES TODAY, AND SAT UP IN THE CHAIR FOR ABOUT 7 HRS. PT WAS STARTING TO HAVE BACK PAIN AND DECIDED TO GET BACK IN BED. SCD'S REAPPLIES. THE DR'S WANTED TO HOLD OFF ON A BLOOD TRANSFUSION, AND REASSES. PT HAS HAD TWO TRANSFUSIONS AT PREVIOUS STAYS AND HAD BAD REACTIONS. A DEEP CROSS AND MATCH WAS ORDERED, AND LAB WILL TAKE IT TOMORROW. STATED NO URGENCY FOR IT AT THIS TIME. PT FEEL'S BETTER THAN SHE HAS, BUT IS FATIGUED RELATED ANEMIA. SHE MCCLENDON SNOT TAKEN ANY PAIN MEDICATIONS TODAY DUE TO TRYING TO STAY AWAY FROM THEM, BUT WAS MEDICATED WITH ZOFRAN ONCE SO FAR TODAY. PT IS CURRENTLY WORKING WITH THE PT AND SHE IS AMBULATING IN THE [place]. VS HAVE BEEN STABLE AND NO CHANGES IN CARE AT THIS TIME. WILL CONTINUE TO MONITOR.
--- NOTE | 2022-01-07 05:52 | NUR ---
SHIFT SUMMARY A/OX4, 1P ASSIST TO BSC. C/O NAUSEA, MEDICATED PER EMAR. PICC TO DUSTIN RUNNING CPN AT 60 ML/HR. TELE SB IN THE 50S. 2L 02 VIA NC TO MAINTAIN SATS GREATER THAN 92% VSS, NO ACUTE CHANGES AT THIS TIME. BED IN LOWEST POSTION WITH CALL LIGHT IN REACH. WILL CONTINUE TO MONITOR AND REPORT TO ONCOMING RN.
[2022-01-07 06:14] LABS: Albumin, Blood 2.4 g/dL (3.4-5.0); Anion Gap 5 mmol/L (6-16); Blood Urea Nitrogen 97 mg/dL (8-24); Bun/Creatinine Ratio 42.9 (12.0-20.0); CO2, Blood 26 mmol/L (21-32); Calcium, Blood 7.9 mg/dL (8.5-10.1); Chloride, Blood 108 mmol/L (98-108); Creatinine, Blood 2.26 mg/dL (0.40-1.00); Glomerular Filtration Rate 25 (60-); Glucose, Blood 222 mg/dL (70-99); Magnesium, Blood 2.7 mg/dL (1.6-2.4); Phosphorus, Blood 2.7 mg/dL (2.5-4.9); Sodium, Blood 139 mmol/L (136-145)
[2022-01-07 06:56] LABS: BASOPHILS ABSOLUTE AUTO 0.01 K/mm3 (0.00-0.23); BASOPHILS PERCENT AUTO 0 % (0-2); EOSINOPHILS PERCENT AUTO 0 % (0-6); Hematocrit 21.1 % (33.0-51.0); IMMATURE GRAN ABSOLUTE AUTO 0.27 K/mm3 (0.00-0.10); IMMATURE GRAN PERCENT AUTO 2 % (0-1); LYMPHOCYTES ABSOLUTE AUTO 1.08 K/mm3 (0.84-5.20); LYMPHOCYTES PERCENT AUTO 8 % (21-46); MONOCYTES ABSOLUTE AUTO 0.85 K/mm3 (0.16-1.47); MONOCYTES PERCENT AUTO 6 % (4-13); Mean Corpuscular HGB 31.5 pg (26.0-34.0); Mean Corpuscular HGB Conc 33.2 g/dL (31.5-36.5); Mean Corpuscular Volume 95 fL (80-100); NEUTROPHILS ABSOLUTE AUTO 11.35 K/mm3 (1.96-9.15); NEUTROPHILS PERCENT AUTO 84 % (41-73); NRBC ABSOLUTE 0.14 K/mm3 (0.00-0.02); Platelet Count 151 K/mm3 (150-400); RDW Standard Deviation 49.3 fL (35.1-46.3); Red Blood Cell Count 2.22 M/mm3 (3.80-5.20); White Blood Cell Count 13.56 K/mm3 (4.00-11.30)
[2022-01-07 11:05] LABS: Campylobacter Sp Not Detected (NOT DETECT); E. Coli O157 Detected (NOT DETECT); Enteroaggregative E. coli-EAEC Not Detected (NOT DETECT); Enteropathogenic E. coli-EPEC Not Detected (NOT DETECT); Enterotoxigenic E. coli-ETEC Not Detected (NOT DETECT); Plesiomonas Shigelloides Not Detected (NOT DETECT); Salmonella Sp Not Detected (NOT DETECT); Shiga Toxin-prod E. coli-STEC Detected (NOT DETECT); Vibrio Cholerae Not Detected (NOT DETECT); Vibrio Sp Not Detected (NOT DETECT); Yersinia Enterocolitica Not Detected (NOT DETECT)
[2022-01-07 11:06] LABS: Adenovirus F 40/41 Not Detected (NOT DETECT); Astrovirus Not Detected (NOT DETECT); Cryptosporidium Not Detected (NOT DETECT); Cyclospora Cayetanensis Not Detected (NOT DETECT); Entamoeba Histolytica Not Detected (NOT DETECT); Giardia Lamblia Not Detected (NOT DETECT); Norovirus GI/GII Not Detected (NOT DETECT); Rotavirus A Not Detected (NOT DETECT); Sapovirus Not Detected (NOT DETECT); Shigella/Enteroin E. coli-EIEC Not Detected (NOT DETECT)
--- NOTE | 2022-01-07 15:11 | NUR ---
Pt is sitting on a chair and alert. Pt's spouse, Edwar, is bedside. They tell me about the ups and downs of the weekend and the recoery that she is finally making. They give much credit and thanks to the hospital staff and are impressed with the care and excellence they brought to helping pt come up out of a scary situation. They also share about the amazing presybeterian and family support they have had through it all. I provide therapeutic listening and prayer. They both respond well and with gratitude. I will continue to remain available.
--- NOTE | 2022-01-07 16:13 | NUR ---
SHIFT SUMMARY PT WOKE UP FEELING BETTER THEN SHE HAS FOR THE LAST FEW DAYS. GOALS OF AMBULATION, INCREASE ORAL INTAKE, NO NEED FOR PAIN MEDICATIONS, AND SHOWERING WERE SET. THE PT WORKED WITH PT, AND THEN AMBULATED AROUND THE UNIT WITH MYSELF. SHE WAS ABLE TO GET UP TO THE BATHROOM AND HAVE THREE DIFFERENT SMALL FORMED BOWEL MOVEMENTS. SHE STATES THAT MENTALLY BEING IN THE BATHROOM HELPS HER PASS A BM VS THE BSC. SHE HAD A SHOWER AND WAS W/O ANY DIZZINESS, ANGINA, OR SOB. THE PT HAS SOME FLANK PAIN, AND THE VICE PRESIDENT OF SOFTWARE DEVELOPMENT STATED THE NEED FOR INCREASING ORAL FLUIDS TO HELP. THE PT HAS MET ALL OF HER GOALS THROUGHTOUT THE SHIFT, AND HAD A FEW DIFFERENT VISITORS. HER PICC LINE DRESSING WAS CHANGED DUE TO SOME DRIED BLOOD, AND A SMALL KINK IN THE CATHETER UNDER THE CHG. THE CATHETER IS SHOWING AT 4CM AND CHARGE NURSE TOOK A LOOK. V/S HAS BEEN STABLE, AND I WILL CONTINUE TO MONITOR SOME MORE DRIED BLOOD, AND A SLIGHT KINK UNDER THE CHG. D
[2022-01-07 17:09] LABS: ADAMTS13 ACTIVITY >100.0 % (>66.8)
[2022-01-08 04:47] LABS: Albumin, Blood 2.4 g/dL (3.4-5.0); Anion Gap 1 mmol/L (6-16); Blood Urea Nitrogen 76 mg/dL (8-24); Bun/Creatinine Ratio 44.7 (12.0-20.0); CO2, Blood 28 mmol/L (21-32); Calcium, Blood 7.9 mg/dL (8.5-10.1); Chloride, Blood 111 mmol/L (98-108); Glomerular Filtration Rate 35 (60-); Glucose, Blood 152 mg/dL (70-99); Phosphorus, Blood 2.2 mg/dL (2.5-4.9); Potassium, Blood 5.3 mmol/L (3.5-5.5); Sodium, Blood 140 mmol/L (136-145)
--- NOTE | 2022-01-08 06:46 | NUR ---
SHIFT SUMMARY PT ALERT AND ORIENTED X 4. HR STABLE. BP STABLE. OXYGEN SATURATION MAINTAINED ABOVE 94% ON 2 L TO RA. NO CP OR PRESSURE. CPN GTT,SEE EMAR. PT SBA TO BATHROOM. PT REPORTS TO NOT BE ABLE TO SLEEP AND THAT MELATONIN DOES NOT WORK. ORDERS FOR ONE TIME DOSE OF AMBIEN. PT SLEPT T/O SHIFT. NO ACUTE CHANGES DURING SHIFT. CALL LIGHT WITHIN REACH. WILL CONT TO MONITOR UNTIL REPORT GIVEN TO DAYSHIFT RN.
[2022-01-08 08:24] LABS: BASOPHILS ABSOLUTE AUTO 0.01 K/mm3 (0.00-0.23); BASOPHILS PERCENT AUTO 0 % (0-2); EOSINOPHILS PERCENT AUTO 0 % (0-6); Hematocrit 23.5 % (33.0-51.0); Hemoglobin 7.6 g/dL (11.5-16.0); IMMATURE GRAN ABSOLUTE AUTO 0.21 K/mm3 (0.00-0.10); IMMATURE GRAN PERCENT AUTO 2 % (0-1); LYMPHOCYTES PERCENT AUTO 9 % (21-46); MONOCYTES PERCENT AUTO 8 % (4-13); Mean Corpuscular HGB 32.1 pg (26.0-34.0); Mean Corpuscular HGB Conc 32.3 g/dL (31.5-36.5); Mean Corpuscular Volume 99 fL (80-100); NEUTROPHILS ABSOLUTE AUTO 9.84 K/mm3 (1.96-9.15); NEUTROPHILS PERCENT AUTO 81 % (41-73); NRBC ABSOLUTE 0.25 K/mm3 (0.00-0.02); NRBC Auto 2.1 /100 WBC (0.0-0.2); Platelet Count 185 K/mm3 (150-400); RDW Coefficient Variation 22.6 % (11.7-14.2); RDW Standard Deviation 51.2 fL (35.1-46.3); Red Blood Cell Count 2.37 M/mm3 (3.80-5.20); White Blood Cell Count 12.16 K/mm3 (4.00-11.30)
--- NOTE | 2022-01-08 10:02 | NUR ---
ASSUMED CARE REPORT FROM SRIDEVI FRAZIER AT 0700. PT UP TO RECLINER, SO AT BEDSIDE. REPORTS POOR SLEEP LAST NOC. ALSO REPORTS DECREASED APPETITE c INCREASED ABD PAIN AND NAUSEA c PO INTAKE. DR MERCEDES AND JUAN AT BEDSIDE. PT AND UPDATED. ENCOURAGED PO INTAKE AND WILL ADVANCE DIET TOLERATED. BROUGHT STRAWBERRY MILKSHAKE THAT PT TOLERATED WELL. CPN GTT CONTINUED VIA PICC. LUNGS CLEAR. VSS. ABD ROUND, SOFT, NON TENDER. BT X 4. WILL CONTINUE TO MONITOR.
[2022-01-08 13:10] LABS: ANTIMYELOPEROXIDASE (MPO) ABS <0.2 units (0.0-0.9); ANTIPROTEINASE 3 (PR-3) ABS 0.2 units (0.0-0.9); ATYPICAL PANCA <1:20 titer (Neg:<1:20); CYTOPLASMIC (C-ANCA) <1:20 titer (Neg:<1:20); PERINUCLEAR (P-ANCA) <1:20 titer (Neg:<1:20)
--- NOTE | 2022-01-08 14:15 | NUR ---
Patient is improving significantly and is asking for sunlight. Pt's RN Tiffany works hard to make this request happen. After meaningful conversation and providing levity, I go and get a wheelchair and pt is wheeled outside by her spouse, Edwar.
--- NOTE | 2022-01-08 17:53 | NUR ---
SHIFT SUMMARY PT STATUS CHANGED TO MED s TELE THIS SHIFT. TOLERATING MEALS WELL. NO N/V OR ABD PAIN. TPN D/C'D. PT AMB IN HOSPITAL c SO. INDEPENDENT IN ROOM. VSS. WILL CONTINUE TO MONITOR UNTIL REPORT TO ONCOMING NURSE.
--- NOTE | 2022-01-08 21:49 | NUR ---
CARE ASSUMPTION: PATIENT A&O X4, DENIES N/V/D OR OTHER PAIN/DISCOMFORT. TOLERATED FOOD DURING THE DAY. VS WNL. EXPRESSES SOME NERVOUSNESS ABOUT DISCHARGE BUT "IS FEELING SO MUCH BETTER." BED LOW WITH CALL LIGHT IN REACH. MEDICATED PER EMAR.
[2022-01-09 04:31] LABS: BASOPHILS PERCENT AUTO 0 % (0-2); EOSINOPHILS PERCENT AUTO 0 % (0-6); Hematocrit 23.3 % (33.0-51.0); Hemoglobin 7.4 g/dL (11.5-16.0); IMMATURE GRAN ABSOLUTE AUTO 0.14 K/mm3 (0.00-0.10); IMMATURE GRAN PERCENT AUTO 1 % (0-1); LYMPHOCYTES ABSOLUTE AUTO 1.06 K/mm3 (0.84-5.20); LYMPHOCYTES PERCENT AUTO 10 % (21-46); MONOCYTES ABSOLUTE AUTO 0.84 K/mm3 (0.16-1.47); MONOCYTES PERCENT AUTO 8 % (4-13); Mean Corpuscular HGB 31.5 pg (26.0-34.0); Mean Corpuscular HGB Conc 31.8 g/dL (31.5-36.5); Mean Corpuscular Volume 99 fL (80-100); Mean Platelet Volume 13.4 fL (9.1-12.4); NEUTROPHILS ABSOLUTE AUTO 8.46 K/mm3 (1.96-9.15); NEUTROPHILS PERCENT AUTO 81 % (41-73); NRBC ABSOLUTE 0.12 K/mm3 (0.00-0.02); NRBC Auto 1.1 /100 WBC (0.0-0.2); Platelet Count 179 K/mm3 (150-400); RDW Coefficient Variation 24.5 % (11.7-14.2); RDW Standard Deviation 51.5 fL (35.1-46.3); Red Blood Cell Count 2.35 M/mm3 (3.80-5.20)
[2022-01-09 04:42] LABS: Albumin, Blood 2.3 g/dL (3.4-5.0); Anion Gap 4 mmol/L (6-16); Blood Urea Nitrogen 58 mg/dL (8-24); Bun/Creatinine Ratio 37.9 (12.0-20.0); CO2, Blood 25 mmol/L (21-32); Calcium, Blood 7.6 mg/dL (8.5-10.1); Chloride, Blood 112 mmol/L (98-108); Creatinine, Blood 1.53 mg/dL (0.40-1.00); Glomerular Filtration Rate 40 (60-); Glucose, Blood 86 mg/dL (70-99); Phosphorus, Blood 3.2 mg/dL (2.5-4.9); Potassium, Blood 5.5 mmol/L (3.5-5.5); Sodium, Blood 141 mmol/L (136-145)
--- NOTE | 2022-01-09 06:34 | NUR ---
SHIFT SUMMARY: PATIENT DENIES N/V/D, SOB, OR OTHER DISCOMFORT. MEDICATED PER EMAR. NO ADVERSE EVENTS THIS SHIFT. BED LOW WITH CALL LIGHT IN REACH. WILL CONTINUE TO MONITOR AND REPORT TO ONCOMING RN.
[2022-01-09] MEDS ORDERED: MELA3 PO (10:42)
[2022-01-09] MEDS ORDERED: PRED20 PO (10:47)
[2022-01-09] MEDS ORDERED: PRED5 PO (10:49)
[2022-01-09] MEDS ORDERED: LOKELMA PO (10:53)
== END 2022-01-09 11:31 | disposition home or self-care (01) | DRG 682 ==
LOC: ER 11:05 → PCU 21:22
PROVIDERS: Family Medicine; Hospitalist; Internal Medicine Gastroenterology; Internal Medicine Hematology & Oncology; Internal Medicine Nephrology; Student in an Organized Health Care Education/Training Program; ADMIT Family Medicine
PROC: 30233N1 Transfusion of Nonautologous Red Blood Cells into Peripheral Vein, Percutaneous Approach (ICD-10-PCS; principal; 2022-01-06)
DX: N17.9 Acute kidney failure, unspecified (principal); D59.3 Hemolytic-uremic syndrome; K51.00 Ulcerative (chronic) pancolitis without complications; K92.1 Melena; E87.1 Hypo-osmolality and hyponatremia; D80.2 Selective deficiency of immunoglobulin A [IgA]; E87.2 Acidosis; N39.0 Urinary tract infection, site not specified; B33.4 Hantavirus (cardio)-pulmonary syndrome [HPS] [HCPS]; K56.7 Ileus, unspecified; D69.6 Thrombocytopenia, unspecified; R07.9 Chest pain, unspecified; N14.1 Nephropathy induced by other drugs, medicaments and biological substances; T50.8X5A Adverse effect of diagnostic agents, initial encounter; Z20.822 Contact with and (suspected) exposure to COVID-19; F41.9 Anxiety disorder, unspecified; Z96.651 Presence of right artificial knee joint; D50.9 Iron deficiency anemia, unspecified; K90.0 Celiac disease; E03.9 Hypothyroidism, unspecified; B96.23 Unspecified Shiga toxin-producing Escherichia coli [E. coli] [STEC] as the cause of diseases classified elsewhere; E06.3 Autoimmune thyroiditis; E86.0 Dehydration; E80.6 Other disorders of bilirubin metabolism; E86.9 Volume depletion, unspecified; E83.51 Hypocalcemia; I95.1 Orthostatic hypotension; K64.4 Residual hemorrhoidal skin tags; R73.9 Hyperglycemia, unspecified; R74.01 Elevation of levels of liver transaminase levels; Z98.890 Other specified postprocedural states; Z87.19 Personal history of other diseases of the digestive system; Z88.0 Allergy status to penicillin; Z88.5 Allergy status to narcotic agent; Z91.018 Allergy to other foods; Z79.899 Other long term (current) drug therapy; Z90.49 Acquired absence of other specified parts of digestive tract
CPT/HCPCS: 0241U; 36415; 36569; 71045; 74018; 76770; 80048; 80053; 80069; 81001; 82010; 82247; 82248; 82390; 82436; 82525; 82550; 82553; 82570; 82595; 82607; 82668; 82728; 82746; 82784; 82803; 82947; 83010; 83516; 83520; 83540; 83550; 83605; 83615; 83735; 83880; 84100; 84156; 84165; 84300; 84443; 84478; 84484; 85025; 85027; 85045; 85384; 85397; 85610; 85651; 85730; 86037; 86140; 86157; 86160; 86225; 86235; 86430; 86850; 86880; 86900; 86901; 86922; 87507; 88184; 88185; 88187; 93005; 93010; 93306; 96361; 96374; 96375; 97110; 97116; 97162; 99285-25; A9270; C1751; J1170; J1940; J2405; J2550; J2765; J2916; J2930; J3010; J3411; J3475; J3480; J7030; J7042; J7070; J7131; J7512; P9047; Q5106

== ENCOUNTER → 2021-12-31 | Outpatient (CLI) | payer OTHER ==
[~2021-12-31] MED LIST changes: +ONDA4ODT MM
[2021-12-31 10:16] LABS: Albumin, Blood 2.9 g/dL (3.4-5.0); Albumin/Globulin Ratio 0.8 (0.8-1.8); Bilirubin, Total 1.3 mg/dL (0.1-1.0); Bun/Creatinine Ratio 18.6 (12.0-20.0); Calcium, Blood 8.4 mg/dL (8.5-10.1); Creatinine, Blood 4.89 mg/dL (0.40-1.00); Globulin, Blood 3.7 g/dL (2.2-4.0); Potassium, Blood 4.8 mmol/L (3.5-5.5); Total Protein, Blood 6.6 g/dL (6.4-8.2)
[2021-12-31 10:24] LABS: BASOPHILS ABSOLUTE AUTO 0.04 K/mm3 (0.00-0.23); BASOPHILS PERCENT AUTO 1 % (0-2); EOSINOPHILS PERCENT AUTO 1 % (0-6); Hematocrit 27.1 % (33.0-51.0); Hemoglobin 9.4 g/dL (11.5-16.0); IMMATURE GRAN ABSOLUTE AUTO 0.26 K/mm3 (0.00-0.10); IMMATURE GRAN PERCENT AUTO 4 % (0-1); LYMPHOCYTES ABSOLUTE AUTO 2.16 K/mm3 (0.84-5.20); LYMPHOCYTES PERCENT AUTO 30 % (21-46); MONOCYTES ABSOLUTE AUTO 0.94 K/mm3 (0.16-1.47); MONOCYTES PERCENT AUTO 13 % (4-13); Mean Corpuscular HGB 30.5 pg (26.0-34.0); Mean Corpuscular HGB Conc 34.7 g/dL (31.5-36.5); Mean Corpuscular Volume 88 fL (80-100); NEUTROPHILS ABSOLUTE AUTO 3.72 K/mm3 (1.96-9.15); NEUTROPHILS PERCENT AUTO 52 % (41-73); NRBC ABSOLUTE 0.03 K/mm3 (0.00-0.02); NRBC Auto 0.4 /100 WBC (0.0-0.2); RDW Coefficient Variation 14.4 % (11.7-14.2); Red Blood Cell Count 3.08 M/mm3 (3.80-5.20); White Blood Cell Count 7.22 K/mm3 (4.00-11.30)
[2021-12-31 10:25] LABS: Platelet Count 54 K/mm3 (150-400)
== END | disposition home or self-care (01) ==
LOC: LAB SHORT 09:59 → LAB 09:59
PROVIDERS: Physician Assistant
DX: K52.9 Noninfective gastroenteritis and colitis, unspecified (principal)
CPT/HCPCS: 80053; 85025

== ENCOUNTER → 2022-04-10 | Outpatient (CLI) | payer OTHER ==
[~2022-04-10] MED LIST changes: +LOKELMA PO; +MELA3 PO; +PRED20 PO; +PRED5 PO
[2022-04-10 10:18] LABS: Source, Urine Clean Catch
[2022-04-10 11:24] LABS: Albumin, Blood 3.5 g/dL (3.4-5.0); Anion Gap 4 mmol/L (6-16); Blood Urea Nitrogen 22 mg/dL (8-24); Bun/Creatinine Ratio 29.3 (12.0-20.0); CO2, Blood 28 mmol/L (21-32); Chloride, Blood 109 mmol/L (98-108); Creatinine, Blood 0.75 mg/dL (0.40-1.00); Glomerular Filtration Rate 94 (60-); Glucose, Blood 81 mg/dL (70-99); Phosphorus, Blood 3.5 mg/dL (2.5-4.9); Potassium, Blood 4.5 mmol/L (3.5-5.5); Sodium, Blood 141 mmol/L (136-145)
[2022-04-10 11:31] LABS: Appearance, Urine Clear (Clear); Bilirubin, Urine Neg (Neg); Blood, Urine Neg (Neg); Color, Urine Yellow (P-Yellow); Glucose Qualitative, Urine Neg (Neg); Ketones, Urine Neg (Neg); Leukocyte Esterase, Urine Neg (Neg); Nitrite, Urine Neg (Neg); Protein, Urine 2+ (Neg); Urobilinogen, Urine NORM (Normal)
[2022-04-10 11:45] LABS: Red Blood Cells, Urine 0-2 /hpf (0-2); Squamous Epithelial Cells Few /hpf (Few); White Blood Cells, Urine 0-2 /hpf (0-5)
[2022-04-10 11:46] LABS: Bacteria Rare /hpf
[2022-04-10 11:55] LABS: Creatinine, Urine Random 80.1 mg/dL (27.00-270.00); Protein, Urine Random 27.7 mg/dL (0.0-11.9); Protein/Creat Ratio, Ur Random 0.3
== END | disposition home or self-care (01) ==
LOC: LAB 09:34 → LAB SHORT 09:34
PROVIDERS: Internal Medicine Nephrology
DX: N17.9 Acute kidney failure, unspecified (principal)
CPT/HCPCS: 36415; 80069; 81001; 82570; 84156

== ENCOUNTER → 2022-08-23 | Outpatient (CLI) | payer OTHER | END | disposition home or self-care (01) | LOC: LAB SHORT 18:56 → LAB 18:56 | DX: J02.9 Acute pharyngitis, unspecified (principal) | CPT/HCPCS: 87081 ==

== ENCOUNTER → 2022-10-23 | Outpatient (CLI) | payer OTHER ==
[2022-10-24 15:09] LABS: HPV 16 Negative (Negative); HPV 18 Negative (Negative); HPV OTHER HR TYPES Negative (Negative)
== END | disposition home or self-care (01) ==
LOC: LAB 12:03 → LAB SHORT 12:03
PROVIDERS: Advanced Practice Midwife
DX: Z01.419 Encounter for gynecological examination (general) (routine) without abnormal findings (principal)
CPT/HCPCS: 87624; G0145